=== PATIENT | male | born 1990 | race Caucasian/White ===

== ENCOUNTER → 2016-06-05 | Emergency (ER) | payer MEDICAID ==
[~2016-06-05] VITALS: Ht 167.6 cm; Wt 80.4 kg
[~2016-06-05] MED LIST: ALBUTEROL 0.083% NEB SOLUTION 2.5 MG/3 ML VIAL INH ONE
[2016-06-05 11:49] LABS: INFLUENZA VIRUS TYPE A ANTIBOD Positive (NEGATIVE); INFLUENZA VIRUS TYPE B ANTIBOD Negative (NEGATIVE)
[2016-06-05 12:18] VITALS: BP 131/85
== END | disposition home or self-care (01) ==
LOC: ED 10:52 → EDSEX 10:52
DX: J11.1 Influenza due to unidentified influenza virus with other respiratory manifestations (principal); J45.901 Unspecified asthma with (acute) exacerbation; F17.210 Nicotine dependence, cigarettes, uncomplicated
CPT/HCPCS: 87502; 94640; 99282; 99283